=== PATIENT | male | born 1975 | race Caucasian/White ===

== ENCOUNTER 2016-03-09 09:19 | Inpatient (IN) | payer OTHER ==
[2016-02-26 10:04] VITALS: BMI 28.0
[~2016-03-09] VITALS: Ht 175.3 cm; Wt 88.2 kg
[2016-03-09] VITALS (9 sets, daily range): BP systolic 99–146; BP diastolic 62–79; PULSE 56–76; TEMP 36.7–37; O2SAT 95–99; Ht 175.3 cm; Wt 88.2 kg
--- NOTE | 2016-03-09 09:08 | History & Physical Bridge Note ---
H&P Re-Evaluation Bridge Note: I have examined the patient, reviewed the History & Physical and in the interval since the performance of the History & Physical I have noted the following changes of clinical significance: No changes noted
[~2016-03-09 09:19] MED LIST: ATROPINE SULFATE 0.1 MG/ML 5ML SYR IV PRN; CEFUROXIME IV 1,500 MG in DEXTROSE 5% 100ML IV SCH; EpHEDrine SULFATE INJ 50 MG/ML AMP IV PRN; FENTANYL CITRATE INJ 50 MCG/1 ML 2 ML VIAL IV PRN; LABETALOL HCL IV 5 MG/ML 20ML IV PRN; LACTATED RINGER'S 1000ML 1,000 ML IV SCH; MEPERIDINE HCL 25 MG/ML CARP IV PRN; ONDANSETRON INJ 2 MG/ML 2 ML VIAL IV PRN; ZNTT/150 PO
--- NOTE | 2016-03-09 10:57 | Surgery Progress Note ---
Surgery Progress Note Date of Service Mar 09, 2016. Subjective pt alert, stable Objective Vital Signs: Date Time Temp Pulse Resp B/P Pulse Ox O2 Delivery O2 Flow Rate FiO2 03/09/16 09:46 36.8 64 20 126/77 97 Room Air General Appearance: no apparent distress Respiratory/Chest: no respiratory distress Abdomen: non distended, soft Assessment & Plan 03/09/16- pt for laparoscopic cholecystectomy, possible open operation- I discussed with him in the office the possibility this operation will not alleviate all of his symptoms. He seemed to understand this and wishes to proceed.
[2016-03-09] MEDS ORDERED: MIDAZOLAM HCL 1 MG/ML 2ML VIAL ONE (11:51)
[2016-03-09] MEDS ORDERED: FENTANYL CITRATE INJ 50 MCG/1 ML 2 ML VIAL ONE ×3 (11:52→14:49)
[2016-03-09] MEDS ORDERED: LIDOCAINE HCL 2% 2 ML VIAL (20MG/ML) ONE (11:52)
[2016-03-09] MEDS ORDERED: ONDANSETRON INJ 2 MG/ML 2 ML VIAL ONE (11:53)
[2016-03-09] MEDS ORDERED: GLYCOPYRROLATE INJ 0.2 MG/ML VIAL ONE (11:53)
[2016-03-09] MEDS ORDERED: ROCURONIUM BROMIDE 10 MG/ML 5 ML VIAL ONE ×2 (11:53→13:07)
[2016-03-09] MEDS ORDERED: NEOSTIGMINE METHYLSULFATE 5 MG/5 ML SYR ONE (11:53)
[2016-03-09] MEDS ORDERED: PROPOFOL IV EMULSION 10 MG/ML 20 ML VIAL IV ONE (11:53)
[2016-03-09] MEDS ORDERED: BUPIVACAINE 0.5 % 5 MG/1 ML MPF 30ML VIAL INJ ONE (14:15)
--- NOTE | 2016-03-09 14:24 | [facility] Operative Report ---
Operative Report Operative Date Mar 09, 2016. Pre-Operative Diagnosis Severe chronic cholecystitis Post-Operative Diagnosis same with severe adhesions Procedure(s) Performed lap cammie with extensive lysis of adhesions Surgeon Dr. Bharat Fields Ware Finisher Surgeon(s) none Estimated Blood Loss 30ml Findings diffuse small bowel and omental adhesions and 2 stones in neck of gb- severe chronic cholecystitis Specimens A. Gallbladder Drains #15 Rd LANCE to subhep space Anesthesia gen Complication(s) None Disposition Recovery Room / PACU I attest to the content of the Intraoperative Record and any orders documented therein. Any exceptions are noted below.
[2016-03-09] MEDS ORDERED: HYDROmorphone INJ 0.5 MG/0.5 ML SYR IV PRN (14:30)
[2016-03-09] MEDS ORDERED: ONDANSETRON INJ 2 MG/ML 2 ML VIAL IV PRN (14:30)
[2016-03-09] MEDS ORDERED: PROMETHAZINE HCL INJ 25 MG in SODIUM CHLORIDE 0.9% 50ML 50 ML IV PRN (14:30)
[2016-03-09] MEDS ORDERED: OXYCODONE/ACETAMINOPHEN 5-325 TAB PO PRN (14:30)
[2016-03-09] MEDS ORDERED: HYDROmorphone INJ 1 MG/ML SYR IV PRN (14:30)
[2016-03-09 14:59] LABS: HEMATOCRIT 41.3 % (42-52); MEAN CELL VOLUME 89.8 fL (80-100); MEAN CORPUSCULAR HEMOGLOBIN 30.4 pg (25-34); MEAN CORPUSCULAR HGB CONC 33.9 g/dl (32-36); PLATELET COUNT 121 K/uL (130-400)
--- NOTE | 2016-03-09 15:06 | OPERATIVE REPORT ---
DATE OF OPERATION: 03/09/2016 NAME OF OPERATION: Laparoscopic cholecystectomy with extensive lysis of adhesions. PREOPERATIVE DIAGNOSIS: Biliary colic. POSTOPERATIVE DIAGNOSES: Same with severe chronic cholecystitis and severe abdominal adhesions. STAFF SURGEON: Dr. Fields. ANESTHESIA: General. FINDINGS: The patient had extensive intraabdominal adhesions including the omentum and small bowel and severe chronic inflammation of the gallbladder with 2 stones in the neck of the gallbladder. DESCRIPTION OF PROCEDURE: The patient was brought in the operating room and placed on the operating table in supine position. His abdomen was prepped and draped in usual fashion. Orogastric tube and pneumatic stockings were placed. Initially, I made an incision to the right of midline just below the umbilicus secondary to a long midline incision from previous abdominal surgery. I dissected down through the fascia and I felt that I was in the abdomen, placed a cannula, which was a 5 mm cannula and it was evident that when I passed the camera after attempting to produce pneumoperitoneum, I was in the preperitoneal space. At this point, I removed the port and then I approached the right mid abdomen where I did another cut down, entering the abdominal cavity under visualization, placing a 5-mm port, producing pneumoperitoneum. On inspection with a 5 mm camera, the patient had dense adhesions. I was able to place a second port between these 2 and below them and then I was able to take down adhesions of the omentum and small bowel, eventually able to observe the gallbladder which was extremely adherent to the liver with 2 stones in the neck. At this point under visualization, I was able to place a 5-mm port cephalad and then retract the gallbladder, dissecting in the juanita hepatis, identifying the cystic duct and cystic artery. These were clipped and transected and the gallbladder was dissected away from the liver bed in the usual fashion, showing chronic inflammation. Gallbladder was then placed in an Endobag, prior to removing the bag I did place a 15 round LANCE drain through one of these 5-mm port, secured to the skin using 3-0 nylon suture, placed into the subhepatic space. This was after appropriate irrigation. At this point, using a 5 mm camera, I was able to remove the bag with the gallbladder through the periumbilical site. All ports were then removed. The large defects closed using interrupted 0 Vicryl suture and 0 PDS sutures and then the subcutaneous tissue reapproximated using 2-0 plain catgut suture, then the skin reapproximated using 4-0 nylon suture. The LANCE drain was placed to suction bulb. The operation itself took me almost 45 minutes extra because of the adhesions and difficulty entering the abdomen in a safe manner. I attest to the content of the Intraoperative Record and any orders documented therein. Any exceptions are noted below. RESHMAD
--- NOTE | 2016-03-09 15:10 | Anesthesiology Progress Note ---
Anesthesia Post Op Note Date & Time Mar 09, 2016 at 15:10 Vital Signs Pain Intensity: 2 Vital Signs Past 12 Hours Date Time Temp Pulse Resp B/P Pulse Ox O2 Delivery O2 Flow Rate FiO2 03/09/16 14:49 136/71 03/09/16 14:48 61 15 100 03/09/16 14:48 62 15 03/09/16 14:43 62 16 03/09/16 14:43 63 16 136/84 100 03/09/16 14:38 59 15 03/09/16 14:38 58 15 146/88 100 03/09/16 14:33 62 20 03/09/16 14:33 61 20 138/88 100 03/09/16 14:28 77 20 137/82 100 03/09/16 14:28 36.4 74 16 142/91 100 Mask 10 03/09/16 14:28 77 20 03/09/16 09:46 36.8 64 20 126/77 97 Room Air Notes Mental Status: alert / awake / arousable, participated in evaluation Pt Amnestic to Procedure: Yes Nausea / Vomiting: adequately controlled Pain: adequately controlled Airway Patency, RR, SpO2: stable & adequate BP & HR: stable & adequate Hydration State: stable & adequate Anesthetic Complications: no major complications apparent
[2016-03-09] MEDS: HYDROmorphone INJ 1 MG/ML SYR IV PRN ×4 (15:16→15:31)
[2016-03-09] MEDS: LACTATED RINGER'S 1000ML 1,000 ML IV SCH (16:56)
[2016-03-09] MEDS: OXYCODONE/ACETAMINOPHEN 5-325 TAB PO PRN ×2 (17:30→21:33)
[2016-03-09] MEDS: HYDROmorphone INJ 2 MG/ML SYR/VIAL IV PRN ×2 (18:41→22:37)
[2016-03-09] MEDS: CEFOXITIN IV 1,000 MG in DEXTROSE 5% 50ML 50 ML IV SCH (20:31)
[2016-03-09] MEDS: RANITIDINE HCL 150 MG TAB PO SCH (21:30)
[2016-03-10 00:10] VITALS: O2SAT 98
[2016-03-10] MEDS: OXYCODONE/ACETAMINOPHEN 5-325 TAB PO PRN ×3 (01:38→09:43)
[2016-03-10] MEDS: HYDROmorphone INJ 2 MG/ML SYR/VIAL IV PRN (02:27)
[2016-03-10 03:51] VITALS: BP 110/65; PULSE 62; TEMP 37.1; O2SAT 94
[2016-03-10] MEDS: CEFOXITIN IV 1,000 MG in DEXTROSE 5% 50ML 50 ML IV SCH ×3 (04:14→20:51)
[2016-03-10] MEDS: LACTATED RINGER'S 1000ML 1,000 ML IV SCH (04:15)
[2016-03-10 05:42] LABS: HEMATOCRIT 39.7 % (42-52); MEAN CELL VOLUME 90.8 fL (80-100); MEAN CORPUSCULAR HEMOGLOBIN 30.2 pg (25-34); MEAN CORPUSCULAR HGB CONC 33.2 g/dl (32-36); MEAN PLATELET VOLUME 11.2 fL (7.4-10.4); PLATELET COUNT 135 K/uL (130-400); RED BLOOD COUNT 4.37 M/uL (4.7-6.1); WHITE BLOOD COUNT 6.38 K/uL (4.8-10.8)
[2016-03-10 06:10] LABS: BUN/CREATININE RATIO 9.5 (10-20); CALCIUM 8.4 mg/dl (8.5-10.1); CREATININE 1.1 mg/dl (0.60-1.40); POTASSIUM 3.8 mmol/L (3.5-5.1)
[2016-03-10 06:12] LABS: ALB/GLOB RATIO 0.9 (0.9-2)
--- NOTE | 2016-03-10 06:19 | Surgery Progress Note ---
Surgery Progress Note Date of Service Mar 10, 2016. Subjective No nausea, No vomiting tolerating liquids, taking IV and po pain meds dr- expected serosang outpt, H/H stable Objective Vital Signs: Date Time Temp Pulse Resp B/P Pulse Ox O2 Delivery O2 Flow Rate FiO2 03/10/16 03:51 37.1 62 18 110/65 94 Room Air 03/10/16 00:10 98 Room Air 03/09/16 23:30 37.0 63 16 119/66 95 Room Air 03/09/16 19:00 36.7 76 18 110/69 97 Nasal Cannula 03/09/16 18:00 37.0 64 18 139/79 97 Nasal Cannula 2.0 03/09/16 17:06 37.0 58 17 121/78 98 Nasal Cannula 2.0 03/09/16 17:00 98 Nasal Cannula 2.0 03/09/16 16:29 36.9 64 17 118/74 99 Nasal Cannula 2.0 03/09/16 16:03 36.9 64 16 146/67 99 Nasal Cannula 2.0 03/09/16 16:00 99 Nasal Cannula 2.0 03/09/16 15:48 133/82 03/09/16 15:45 61 15 03/09/16 15:45 61 15 100 03/09/16 15:43 114/72 03/09/16 15:40 64 26 03/09/16 15:40 66 26 100 03/09/16 15:38 126/78 03/09/16 15:35 61 14 100 03/09/16 15:35 60 14 03/09/16 15:33 123/85 03/09/16 15:30 69 19 100 03/09/16 15:30 66 19 03/09/16 15:28 124/83 03/09/16 15:25 59 14 03/09/16 15:25 59 14 100 03/09/16 15:23 121/80 03/09/16 15:22 126/76 03/09/16 15:20 60 14 100 03/09/16 15:20 60 14 03/09/16 15:18 123/77 03/09/16 15:17 36.7 60 17 123/77 100 Nasal Cannula 2 03/09/16 15:15 63 17 100 03/09/16 15:15 62 17 03/09/16 15:14 59 18 03/09/16 15:14 59 18 100 03/09/16 15:13 123/80 03/09/16 15:09 72 15 100 03/09/16 15:09 75 15 03/09/16 15:08 120/78 03/09/16 15:05 63 13 03/09/16 15:05 63 13 100 03/09/16 15:03 131/79 03/09/16 15:00 64 17 03/09/16 15:00 63 17 100 03/09/16 14:58 124/83 03/09/16 14:55 68 21 03/09/16 14:55 68 21 100 03/09/16 14:53 137/85 03/09/16 14:50 57 14 03/09/16 14:50 57 14 100 03/09/16 14:49 136/71 03/09/16 14:48 61 15 100 03/09/16 14:48 62 15 03/09/16 14:43 62 16 03/09/16 14:43 63 16 136/84 100 03/09/16 14:38 59 15 03/09/16 14:38 58 15 146/88 100 03/09/16 14:33 62 20 03/09/16 14:33 61 20 138/88 100 03/09/16 14:28 77 20 137/82 100 03/09/16 14:28 36.4 74 16 142/91 100 Mask 10 03/09/16 14:28 77 20 03/09/16 09:46 36.8 64 20 126/77 97 Room Air General Appearance: no apparent distress Respiratory/Chest: no respiratory distress Abdomen: soft Incision(s): intact, drainage (expected) Laboratory Results: Results Past 24 Hours Test 03/09/16 14:48 03/10/16 05:00 Range/Units White Blood Count 6.60 6.38 4.8-10.8 K/uL Red Blood Count 4.60 4.37 4.7-6.1 M/uL Hemoglobin 14.0 13.2 14.0-18.0 g/dL Hematocrit 41.3 39.7 42-52 % Mean Corpuscular Volume 89.8 90.8 80-100 fL Mean Corpuscular Hemoglobin 30.4 30.2 25-34 pg Mean Corpuscular Hemoglobin Concent 33.9 33.2 32-36 g/dl RDW Standard Deviation 41.6 42.0 36.4-46.3 fL RDW Coefficient of Variation 12.8 12.7 11.5-14.5 % Platelet Count 121 135 130-400 K/uL Mean Platelet Volume 11.0 11.2 7.4-10.4 fL Sodium Level 140 136-145 mmol/L Potassium Level 3.8 3.5-5.1 mmol/L Chloride Level 104 98-107 mmol/L Carbon Dioxide Level 27 21-32 mmol/L Anion Gap 9.0 3-11 mmol/L Blood Urea Nitrogen 10 7-18 mg/dl Creatinine 1.10 0.60-1.40 mg/dl Est Creatinine Clear Calc Drug Dose 99.1 ml/min Estimated GFR () 97.5 Estimated GFR (Non- 84.1 BUN/Creatinine Ratio 9.5 10-20 Random Glucose 103 70-99 mg/dl Calcium Level 8.4 8.5-10.1 mg/dl Total Bilirubin 0.6 0.2-1 mg/dl Direct Bilirubin 0.1 0-0.2 mg/dl Aspartate Amino Transf (AST/SGOT) 28 15-37 U/L Alanine Aminotransferase (ALT/SGPT) 38 12-78 U/L Alkaline Phosphatase 55 45-117 U/L Total Protein 6.6 6.4-8.2 gm/dl Albumin 3.2 3.4-5.0 gm/dl Globulin 3.4 2.5-4.0 gm/dl Albumin/Globulin Ratio 0.9 0.9-2 Microbiology Results 03/09/16 MRSA DNA Surveillance Screen - Final, Complete Specimen Positive for MRSA by DNA Probe Assessment & Plan 03/10/16- s/p lap cammie with extensive lysis of adhesions- adv diet , ambulate, d /c dilaudid cont percocet, check labs- 03/09/16- pt for laparoscopic cholecystectomy, possible open operation- I discussed with him in the office the possibility this operation will not alleviate all of his symptoms. He seemed to understand this and wishes to proceed. 03/09/16- pt for laparoscopic cholecystectomy, possible open operation- I discussed with him in the office the possibility this operation will not alleviate all of his symptoms. He seemed to understand this and wishes to proceed.
[2016-03-10] MEDS ORDERED: OXYC-57 PO (06:22)
[2016-03-10] MEDS ORDERED: CIPR-255 PO (06:22)
--- NOTE | 2016-03-10 06:26 | Discharge Instructions ---
Discharge Instructions Admission Reason for Admission: Chronic Cholecystitis Discharge Discharge Diagnosis / Problem: chronic cholecystitis and adhesions Discharge Goals Goal(s): Decrease discomfort, Improve function, Improve disease control Activity Recommendations Activity Limitations: as noted below Lifting Limitations: no more than 10 pounds Exercise/Sports Limitations: until after follow-up appointment May Resume Sexual Activity: after follow-up appointment Shower/Bathe: tomorrow (may shower) Driving or Machine Use: resume 3 days after discharge SPECIAL CARE INSTRUCTIONS: * Cover incisions and change daily for comfort/drainage. * Empty drain 2-3 times per day and record. * May use ibuprofen for pain as tolerated. * Expect some swelling and bruising. Call your doctor if: * Temperature above 101 degrees * Pain not relieved by pain medicine ordered * There is increased drainage or redness from any incision * You have any unanswered questions or concerns [phone]. FOLLOW UP VISIT: If not already scheduled, please call the office for a follow-up visit. for Wed 2/3 or next Mon or Tue for drain removal- call with questions OFFICE PHONE NUMBER: Dr. Fields Office . Current Hospital Diet Patient's current hospital diet: Regular Diet Discharge Diet Recommended Diet: Regular Diet Procedures Procedures Performed: Laparoscopic Cholecystectomy Pending Studies Studies pending at discharge: no Medical Emergencies . Who to Call and When: Medical Emergencies: If at any time you feel your situation is an emergency, please call 911 immediately. . Non-Emergent Contact Non-Emergency issues call your: Surgeon . "Provider Documentation" section prepared by Bharat Fields. VTE Core Measure Inpt VTE Proph given/why not?: SCD's
--- NOTE | 2016-03-10 08:12 | Anesthesiology Progress Note ---
Anesthesia Post Op Note Date & Time Mar 10, 2016 at 08:12 Vital Signs Vital Signs Past 12 Hours Date Time Temp Pulse Resp B/P Pulse Ox O2 Delivery O2 Flow Rate FiO2 03/10/16 03:51 37.1 62 18 110/65 94 Room Air 03/10/16 00:10 98 Room Air 03/09/16 23:30 37.0 63 16 119/66 95 Room Air Notes Mental Status: alert / awake / arousable, participated in evaluation Pt Amnestic to Procedure: Yes Nausea / Vomiting: adequately controlled Pain: adequately controlled Airway Patency, RR, SpO2: stable & adequate BP & HR: stable & adequate Hydration State: stable & adequate Anesthetic Complications: no major complications apparent
[2016-03-10] MEDS ORDERED: NURSING VERBAL MED ORDER ONE (08:15)
[2016-03-10] MEDS: HYDROmorphone INJ 1 MG/ML SYR IV PRN ×5 (08:23→20:52)
[2016-03-10] MEDS: DOCUSATE SODIUM/SENNA 50/8.6MG TAB PO SCH ×2 (08:59→20:51)
[2016-03-10] MEDS: MAGNESIUM HYDROXIDE SUSP 30 ML UDC PO SCH ×2 (08:59→20:51)
[2016-03-10] MEDS: RANITIDINE HCL 150 MG TAB PO SCH ×2 (09:43→20:52)
[2016-03-10] MEDS ORDERED: OXYC10SO PO (13:06)
[2016-03-10] MEDS: OXYCODONE HCL SOLN 5 MG/5 ML UDC PO PRN ×3 (13:38→23:35)
[2016-03-10 15:04] VITALS: BP 126/75; PULSE 79; TEMP 37; O2SAT 92
[2016-03-10 15:30] VITALS: O2SAT 92
[2016-03-10 22:49] VITALS: BP 123/80; PULSE 66; TEMP 37.2; O2SAT 92
[2016-03-11] MEDS ORDERED: COUGH DROP (SUGAR FREE) LOZ 24 LOZ/1 BOX ONE (01:10)
[2016-03-11] MEDS: HYDROmorphone INJ 1 MG/ML SYR IV PRN ×4 (01:15→11:39)
[2016-03-11] MEDS: CEFOXITIN IV 1,000 MG in DEXTROSE 5% 50ML 50 ML IV SCH ×2 (03:33→11:50)
[2016-03-11] MEDS: OXYCODONE HCL SOLN 5 MG/5 ML UDC PO PRN ×3 (04:23→13:25)
[2016-03-11 07:50] VITALS: BP 134/81; PULSE 75; TEMP 37.1; O2SAT 94
[2016-03-11] MEDS ORDERED: SENN8.6T7 PO (07:56)
--- NOTE | 2016-03-11 08:12 | Surgery Progress Note ---
Surgery Progress Note Date of Service Mar 11, 2016. Subjective Post OP Day: 2 tolerating diet, po oxycodone marginal control-still taking IV pain meds Objective Vital Signs: Date Time Temp Pulse Resp B/P Pulse Ox O2 Delivery O2 Flow Rate FiO2 03/11/16 07:50 37.1 75 18 134/81 94 Room Air 03/10/16 23:25 Room Air 03/10/16 22:49 37.2 66 16 123/80 92 Room Air 03/10/16 15:30 92 Room Air 03/10/16 15:04 37.0 79 18 126/75 92 Room Air Physical Exam: LANCE drainage (15 cc) Abdomen: non distended, soft Incision(s): clean, dry Assessment & Plan s/p lap cammie osborne for d/c today with drain, po analgesics, cipro and senna
[2016-03-11] MEDS: MAGNESIUM HYDROXIDE SUSP 30 ML UDC PO SCH (08:29)
[2016-03-11] MEDS: DOCUSATE SODIUM/SENNA 50/8.6MG TAB PO SCH (08:29)
[2016-03-11] MEDS: RANITIDINE HCL 150 MG TAB PO SCH (08:40)
--- NOTE | 2016-03-11 08:44 | DISCHARGE SUMMARY ---
PRIMARY DISCHARGE DIAGNOSES: Cholelithiasis with severe chronic cholecystitis and intra-abdominal adhesions. PROCEDURE PERFORMED: Laparoscopic cholecystectomy with extensive lysis of adhesions. HOSPITAL COURSE: The patient is a 41-year-old male inmate with chronic cholecystitis, previous abdominal surgery and extensive adhesions. There were 2 stones in the neck of the gallbladder. A LANCE drain was placed. He was transferred to the surgical floor for observation. On postoperative day 1, he was tolerating an advancing diet. He continued to require IV analgesics in addition to p.o. His LANCE drainage was nonbilious. His p.o. meds were adjusted. By day 2, he was better tolerating oral analgesics, oxycodone 10 mg, but was taking intermittent IV Dilaudid as well. He was tolerating diet. He was stable for transfer back to [facility] with oral analgesics. DISCHARGE INSTRUCTIONS: Return to [facility] with the LANCE drain. Drain should be emptied and recorded 2-3 times daily. The drain can be removed in 2-3 days by [facility] staff or he can follow up in the office later this week or early next week for removal. He may shower with the drain. He should follow up with Dr. Fields in the office within 1-2 weeks. Sutures can be removed at that time. DISCHARGE MEDICATIONS: He was given prescriptions for Cipro 500 mg p.o. b.i.d. x7, Roxicodone 10 mg p.o. q. 6 hours, and Senokot-S 1 tablet p.o. b.i.d. x1 week. Continue Zantac 150 mg p.o. b.i.d. MTDD
[2016-03-11 09:18] VITALS: BP 134/81; PULSE 75; TEMP 37.1; O2SAT 94
== END 2016-03-11 13:15 | DRG 419 ==
LOC: ENRESERVTM → ENRESERVDT → C.ACU 09:19 → C.MSW 09:35
PROVIDERS: ADMIT Surgery; ATTEND Surgery
PROC: 0FN44ZZ Release Gallbladder, Percutaneous Endoscopic Approach (ICD-10-PCS; principal; 2016-03-09 07:00)
PROC: 0FT44ZZ Resection of Gallbladder, Percutaneous Endoscopic Approach (ICD-10-PCS; principal; 2016-03-09 07:00)
PROC: 0DNS4ZZ (ICD-10-PCS; principal; 2016-03-09 07:00)
PROC: 0DN88ZZ Release Small Intestine, Via Natural or Artificial Opening Endoscopic (ICD-10-PCS; principal; 2016-03-09 07:00)
DX: K80.10 Calculus of gallbladder with chronic cholecystitis without obstruction (principal); K66.0 Peritoneal adhesions (postprocedural) (postinfection); F17.200 Nicotine dependence, unspecified, uncomplicated; Z79.899 Other long term (current) drug therapy; Z98.890 Other specified postprocedural states

== ENCOUNTER 2016-03-21 15:06 | Emergency (ER) | payer OTHER ==
[~2016-03-21] VITALS: Ht 175.3 cm; Wt 88.7 kg
[~2016-03-21 15:06] MED LIST changes: -ATROPINE SULFATE 0.1 MG/ML 5ML SYR IV PRN; -CEFUROXIME IV 1,500 MG in DEXTROSE 5% 100ML IV SCH; +CIPR-255 PO; -EpHEDrine SULFATE INJ 50 MG/ML AMP IV PRN; -FENTANYL CITRATE INJ 50 MCG/1 ML 2 ML VIAL IV PRN; -LABETALOL HCL IV 5 MG/ML 20ML IV PRN; -LACTATED RINGER'S 1000ML 1,000 ML IV SCH; -MEPERIDINE HCL 25 MG/ML CARP IV PRN; -ONDANSETRON INJ 2 MG/ML 2 ML VIAL IV PRN; +OXYC10SO PO; +SENN8.6T7 PO
[2016-03-21 15:18] VITALS: TEMP 37.1; Ht 175.3 cm; Wt 88.7 kg
[2016-03-21 16:02] LABS: BASO % 1.2 %; BASO ABS # 0.08 K/uL (0-0.2); COMPLETE YES; EOS % 9.7 %; HEMATOCRIT 44.8 % (42-52); IG% 0.5 %; LYMPH % 23.5 %; LYMPH ABS # 1.52 K/uL (1.2-3.4); MEAN CELL VOLUME 90.9 fL (80-100); MEAN CORPUSCULAR HEMOGLOBIN 31.8 pg (25-34); MEAN PLATELET VOLUME 10.9 fL (7.4-10.4); MONO % 9.7 %; NEUT % 55.4 %; PLATELET COUNT 220 K/uL (130-400); RED BLOOD COUNT 4.93 M/uL (4.7-6.1); WHITE BLOOD COUNT 6.48 K/uL (4.8-10.8)
[2016-03-21] MEDS ORDERED: DOCU-94 PO (16:15)
[2016-03-21] MEDS ORDERED: ACET-749 PO (16:15)
[2016-03-21] MEDS ORDERED: ONDA4TAB46 PO (16:15)
[2016-03-21 16:27] LABS: ALKALINE PHOSPHATASE 133 U/L (45-117); ALT/SGPT 71 U/L (12-78); BLOOD UREA NITROGEN 13 mg/dl (7-18); BUN/CREATININE RATIO 15.4 (10-20); CALCIUM 9.5 mg/dl (8.5-10.1); CARBON DIOXIDE 27 mmol/L (21-32); CHLORIDE 105 mmol/L (98-107); CREATININE 0.81 mg/dl (0.60-1.40); GLUCOSE 92 mg/dl (70-99)
--- NOTE | 2016-03-21 16:27 | EMERGENCY ROOM VISIT NOTE ---
History Report prepared by Mady: Vilma Fernández Under the Supervision of: Dr. Chente Prieto M.D. First contact with patient: 15:39 Chief Complaint: ABDOMINAL PAIN Stated Complaint: ABDOMINAL PAIN Nursing Triage Summary: Inmate from [facility]. Patient c/o of RUQ abdominal pain x 3 days ago. S/P lap cammie 03/09/2016. History of Present Illness The patient is a 41 year old male who presents to the Emergency Room with complaints of worsening RUQ abdominal pain for the past 3 days. The patient had 2 stones in the neck of his gallbladder and Dr. Fields removed the gallbladder and placed a LANCE drain on 03/10/16. The drain is no longer in place. The patient is complaining of sharp, cramping pain in the RUQ where the drain was. He states that his pain is worse with palpation. He rates his pain as a 10/10 in severity. Source of History: patient Onset: 3 days ago Position: abdomen (RUQ) Symptom Intensity: 10/10 Quality: sharp, cramping Timing: worsening Modifying Factors (Worsening): other (palpation) Review of Systems See HPI for pertinent positives & negatives. A total of 10 systems reviewed and were otherwise negative. Past Medical & Surgical Medical Problems: (1) Chronic cholecystitis (2) Nicotine dependence, unspecified, uncomplicated Family History No pertinent history stated. Social History Smoking Status: Current Every Day Smoker Alcohol Use: none Housing Status: other Occupation Status: other (incarcerated) Current/Historical Medications Scheduled Docusate Sodium (Colace), 1 CAP PO BID Ranitidine (Zantac), 150 MG PO BID Scheduled PRN Acetaminophen/Codeine (Tylenol W/Codeine #3), 2 TAB PO TID PRN for Pain Ondansetron Hcl (Zofran), 4 MG PO TID PRN for Nausea Allergies Coded Allergies: No Known Allergies (Unverified , 03/09/16) Physical Exam Vital Signs Date Time Temp Pulse Resp B/P Pulse Ox O2 Delivery O2 Flow Rate FiO2 03/21/16 19:22 63 18 116/76 98 Room Air 03/21/16 15:18 37.1 72 18 126/89 97 Room Air Physical Exam GENERAL: Patient is a healthy-appearing well-nourished 41 year old male HEAD: Normocephalic atraumatic EYES: Ocular movements intact pupils equal and react to light OROPHARYNX mucous membranes are moist no exudates present no erythema or edema present NECK: Supple no nuchal rigidity CHEST: Good equal expansion LUNGS: Clear and equal to auscultation CARDIAC: Normal S1 and S2 ABDOMEN: Soft slight tenderness in the RUQ, no guarding BACK: No CVA tenderness EXTREMITIES: No pain upon palpation normal muscle strength in all groups no clubbing cyanosis or edema NEURO: Patient is following commands is answering questions appropriately. Alert and oriented x3 Cranial Nerves 2-12 grossly intact Medical Decision & Procedures ER Provider Diagnostic Interpretation: Radiology results as stated below per my review and radiologist interpretation: CT SCAN OF THE ABDOMEN AND PELVIS WITH IV CONTRAST CLINICAL HISTORY: Right upper quadrant abdominal pain. Recent cholecystectomy. COMPARISON STUDY: Abdominal ultrasound dated 03/21/16. TECHNIQUE: Following the IV administration of 117 cc of Optiray 320, CT scan of the abdomen and pelvis is performed from the lung bases to the proximal femora. Images are reviewed in the axial, sagittal, and coronal planes. IV contrast was administered without complication. Automated dose control exposure was utilized. CT DOSE: 381.54 mGy.cm FINDINGS: Lung bases: The heart is normal in size and without pericardial effusion. The lung bases are clear noting dependent atelectasis. Liver: The contrast-enhanced liver is normal in size, contour, and attenuation. There is no intrahepatic biliary ductal dilatation. The hepatic veins and portal veins are patent. Gallbladder: Gallbladder surgically absent noting clips in the gallbladder fossa. There is complex fluid identified in the gallbladder fossa. This measures approximately 5.5 x 2.5 cm in axial diameter. Spleen: Normal in size and attenuation. Pancreas: Unremarkable. Adrenal glands: Unremarkable. Kidneys: The contrast enhanced kidneys are normal in size and without hydronephrosis. The kidneys enhance symmetrically. Abdominal vasculature: The abdominal aorta is normal in course and caliber. Bowel: The small bowel and colon are normal in course and caliber. The appendix is well-visualized and normal. Peritoneum: There is no intraperitoneal free air or abdominal ascites. There is a small fat-containing umbilical hernia. Complex fluid is noted in the gallbladder fossa and discussed above. A laparoscopy port is suspected in the right mid abdomen. Lymphadenopathy: None. Pelvic viscera: The bladder, prostate, and seminal vesicles are normal as visualized. Skeletal structures: No lytic or blastic lesions are seen. IMPRESSION: 1. The gallbladder is surgically absent. There is a small complex fluid collection identified in the gallbladder fossa, which is nonspecific given the history of recent cholecystectomy. This could represent expected postoperative change such as a resolving hematoma/seroma. Abscess or biloma would be impossible to exclude. Clinical correlation will be essential. 2. Additional findings as above. Electronically signed by: Dimitris Giordano M.D. 03/21/2016 7:02 PM Dictated Date/Time: 03/21/2016 6:55 PM ULTRASOUND RIGHT UPPER QUADRANT ABDOMEN CLINICAL HISTORY: Right upper quadrant abdominal pain. COMPARISON STUDY: Abdominal ultrasound dated 11/26/2015. TECHNIQUE: Real-time, grayscale, and color flow sonography of the right upper quadrant of the abdomen was performed. Images are reviewed in the transverse and longitudinal planes. FINDINGS: Liver: The liver is enlarged and demonstrates heterogeneously increased echotexture consistent with hepatic steatosis. There is no intrahepatic biliary ductal dilatation. The main portal vein is patent. Gallbladder: The gallbladder is surgically absent. The common bile duct measures up to 0.5 cm in diameter. Pancreas: Visualized portions of the pancreatic head and body are normal in appearance. The splenic vein is patent. Right kidney: Survey images of the right kidney demonstrate normal size and echotexture. There is no hydronephrosis. Ascites: There is trace perihepatic free fluid. Minimally complex fluid is identified in the gallbladder fossa. This measures up to 2.6 cm. IMPRESSION: 1. There are changes from interval cholecystectomy as compared to 11/26/2015. 2. There is a minimally complex fluid collection identified in the gallbladder fossa measuring up to 2.6 cm. This may simply represent expected postoperative change/resolving seroma/hematoma. Abscess with be impossible to exclude by imaging. Clinical correlation will be required. 3. Hepatomegaly and hepatic steatosis. 4. There is trace perihepatic fluid. Electronically signed by: Dimitris Giordano M.D. 03/21/2016 5:07 PM Dictated Date/Time: 03/21/2016 5:05 PM Laboratory Results 03/21/16 15:50 Red Blood Count 4.93, Mean Corpuscular Volume 90.9, Mean Corpuscular Hemoglobin 31.8, Mean Corpuscular Hemoglobin Concent 35.0, Mean Platelet Volume 10.9, Neutrophils (%) (Auto) 55.4, Lymphocytes (%) (Auto) 23.5, Monocytes (%) (Auto) 9.7, Eosinophils (%) (Auto) 9.7, Basophils (%) (Auto) 1.2, Neutrophils # (Auto) 3.59, Lymphocytes # (Auto) 1.52, Monocytes # (Auto) 0.63, Eosinophils # (Auto) 0.63, Basophils # (Auto) 0.08 03/21/16 15:50 Test 03/21/16 15:50 03/21/16 17:35 White Blood Count 6.48 K/uL (4.8-10.8) Red Blood Count 4.93 M/uL (4.7-6.1) Hemoglobin 15.7 g/dL (14.0-18.0) Hematocrit 44.8 % (42-52) Mean Corpuscular Volume 90.9 fL (80-100) Mean Corpuscular Hemoglobin 31.8 pg (25-34) Mean Corpuscular Hemoglobin Concent 35.0 g/dl (32-36) Platelet Count 220 K/uL (130-400) Mean Platelet Volume 10.9 fL (7.4-10.4) Neutrophils (%) (Auto) 55.4 % Lymphocytes (%) (Auto) 23.5 % Monocytes (%) (Auto) 9.7 % Eosinophils (%) (Auto) 9.7 % Basophils (%) (Auto) 1.2 % Neutrophils # (Auto) 3.59 K/uL (1.4-6.5) Lymphocytes # (Auto) 1.52 K/uL (1.2-3.4) Monocytes # (Auto) 0.63 K/uL (0.11-0.59) Eosinophils # (Auto) 0.63 K/uL (0-0.5) Basophils # (Auto) 0.08 K/uL (0-0.2) RDW Standard Deviation 42.3 fL (36.4-46.3) RDW Coefficient of Variation 12.7 % (11.5-14.5) Immature Granulocyte % (Auto) 0.5 % Immature Granulocyte # (Auto) 0.03 K/uL (0.00-0.02) Anion Gap 10.0 mmol/L (3-11) Est Creatinine Clear Calc Drug Dose 134.9 ml/min Estimated GFR () 129.8 Estimated GFR (Non- 112.0 BUN/Creatinine Ratio 15.4 (10-20) Calcium Level 9.5 mg/dl (8.5-10.1) Total Bilirubin 0.4 mg/dl (0.2-1) Direct Bilirubin < 0.1 mg/dl (0-0.2) Aspartate Amino Transf (AST/SGOT) 33 U/L (15-37) Alanine Aminotransferase (ALT/SGPT) 71 U/L (12-78) Alkaline Phosphatase 133 U/L (45-117) Total Protein 8.2 gm/dl (6.4-8.2) Albumin 3.7 gm/dl (3.4-5.0) Lipase 151 U/L (73-393) Urine Color YELLOW Urine Appearance CLEAR (CLEAR) Urine pH 6.5 (4.5-7.5) Urine Specific [place] <= 1.005 (1.000-1.030) Urine Protein NEG (NEG) Urine Glucose (UA) NEG (NEG) Urine Ketones NEG (NEG) Urine Occult Blood NEG (NEG) Urine Nitrite NEG (NEG) Urine Bilirubin NEG (NEG) Urine Urobilinogen NEG (NEG) Urine Leukocyte Esterase NEG (NEG) Labs reviewed by ED physician. Medications Administered Medications (Trade) Dose Ordered Sig/Nola Route Start Time Stop Time Status Last Admin Dose Admin Ketorolac Tromethamine (Toradol Inj) 30 mg NOW STAT IV 03/21/16 17:20 03/21/16 17:23 DC 03/21/16 17:28 30 MG Metoclopramide HCl (Reglan Inj) 10 mg NOW STAT IV 03/21/16 17:20 03/21/16 17:23 DC 03/21/16 17:27 10 MG Hydromorphone HCl (Dilaudid Inj) 1 mg NOW STAT IV 03/21/16 19:12 03/21/16 19:13 DC 03/21/16 19:19 1 MG ED Course 1539: Past medical records reviewed. The patient was evaluated in room A2. A complete history and physical examination was performed. 1720: Reglan 10 mg IV, Toradol 30 mg IV 1908: At this time I spoke with Dr. Orlando of surgery. We discussed the patient's case and he will follow-up with the patient in the office on Wednesday. 0: I reassessed the patient at this time. He is still complaining of pain. I discussed the results and treatment plan with the patient. I answered all pertaining questions that he had. He expressed understanding and verbalized agreement. The patient will be discharged. 1911: Dilaudid 1 mg IV Medical Decision Differential diagnosis: Etiologies such as appendicitis, diverticulitis, PUD, biliary pathology, UTI, pancreatitis, obstruction, mesenteric ischemia, aortic pathology, infections, inflammatory bowel disease, renal colic, as well as others were entertained. This is a 41-year-old male who presents emergency department complaining of right lower quadrant abdominal pain. The patient recently had a cholecystectomy performed. The patient is mainly tender on examination and in addition he has a normal white blood count and is total bili and direct bili are normal. Patient was sent for ultrasound which showed fluid in the gallbladder fossa. For this reason a CAT scan was performed which also confirmed these findings. I did discuss the case with the surgeon on-call who asked that the patient follow-up with surgery on Wednesday. An IV was established , the patient is given normal saline bolus, Toradol, Dilaudid. Both patient and caregivers were in agreement with the treatment plan. Consults Time Called: 1905 Consulting Physician: Dr. Orlando Returned Call: 1907 At this time I spoke with Dr. Orlando of surgery. We discussed the patient's case and he will follow-up with the patient in the office on Wednesday. Impression Primary Impression: Abdominal pain Scribe Attestation The scribe's documentation has been prepared under my direction and personally reviewed by me in its entirety. I confirm that the note above accurately reflects all work, treatment, procedures, and medical decision making performed by me. Departure Information Dispostion Home / Self-Care Referrals [facility] (PCP) Bharat Fields M.D. Forms Call Back Authorization, HOME CARE DOCUMENTATION FORM, IMPORTANT VISIT INFORMATION Patient Instructions ED Abd Pain Unkn Cause Male, My [facility] Additional Instructions Follow up with DR Fields's office on Wednesday You have been examined and treated today on an emergency basis only. This is not a substitute for, or an effort to provide, complete comprehensive medical care. It is impossible to recognize and treat all injuries or illnesses in a single emergency department visit. It is therefore important that you follow up closely with your PCP. Call as soon as possible for an appointment. Thank you for your time and consideration. I look forward to speaking with you again soon. Please don't hesitate to call us if you have any questions. Problem Qualifiers Primary Impression: Abdominal pain Abdominal location: right upper quadrant Qualified Codes: R10.11 - Right upper quadrant pain
[2016-03-21 16:31] LABS: POTASSIUM 4.7 mmol/L (3.5-5.1); SODIUM 142 mmol/L (136-145)
[2016-03-21 16:36] LABS: AST/SGOT 33 U/L (15-37)
--- NOTE | 2016-03-21 17:09 | DIAGNOSTIC IMAGING REPORT ---
ULTRASOUND RIGHT UPPER QUADRANT ABDOMEN CLINICAL HISTORY: Right upper quadrant abdominal pain. COMPARISON STUDY: Abdominal ultrasound dated 11/26/2015. TECHNIQUE: Real-time, grayscale, and color flow sonography of the right upper quadrant of the abdomen was performed. Images are reviewed in the transverse and longitudinal planes. FINDINGS: Liver: The liver is enlarged and demonstrates heterogeneously increased echotexture consistent with hepatic steatosis. There is no intrahepatic biliary ductal dilatation. The main portal vein is patent. Gallbladder: The gallbladder is surgically absent. The common bile duct measures up to 0.5 cm in diameter. Pancreas: Visualized portions of the pancreatic head and body are normal in appearance. The splenic vein is patent. Right kidney: Survey images of the right kidney demonstrate normal size and echotexture. There is no hydronephrosis. Ascites: There is trace perihepatic free fluid. Minimally complex fluid is identified in the gallbladder fossa. This measures up to 2.6 cm. IMPRESSION: 1. There are changes from interval cholecystectomy as compared to 11/26/2015. 2. There is a minimally complex fluid collection identified in the gallbladder fossa measuring up to 2.6 cm. This may simply represent expected postoperative change/resolving seroma/hematoma. Abscess with be impossible to exclude by imaging. Clinical correlation will be required. 3. Hepatomegaly and hepatic steatosis. 4. There is trace perihepatic fluid. Electronically signed by: Dimitris Giordano M.D. 03/21/2016 5:07 PM Dictated Date/Time: 03/21/2016 5:05 PM
[2016-03-21] MEDS ORDERED: KETOROLAC TROMETHAMINE 30 MG/ML VIAL IV STA (17:20)
[2016-03-21] MEDS ORDERED: METOCLOPRAMIDE HCL INJ 5 MG/ML 2 ML VIAL IV STA (17:20)
[2016-03-21] MEDS ORDERED: OPTIRAY 320 IV PRN (17:30)
[2016-03-21 18:01] LABS: MANUAL MICROSCOPIC REQUIRED? NO; REVIEW REQ? NO; URINE APPEARANCE CLEAR (CLEAR); URINE BILIRUBIN NEG (NEG); URINE COLOR YELLOW; URINE NITRITE NEG (NEG); URINE PH 6.5 (4.5-7.5); URINE SPECIFIC GRAVITY <= 1.005 (1.000-1.030); UROBILINOGEN NEG (NEG)
--- NOTE | 2016-03-21 19:03 | DIAGNOSTIC IMAGING REPORT ---
CT SCAN OF THE ABDOMEN AND PELVIS WITH IV CONTRAST CLINICAL HISTORY: Right upper quadrant abdominal pain. Recent cholecystectomy. COMPARISON STUDY: Abdominal ultrasound dated 03/21/16. TECHNIQUE: Following the IV administration of 117 cc of Optiray 320, CT scan of the abdomen and pelvis is performed from the lung bases to the proximal femora. Images are reviewed in the axial, sagittal, and coronal planes. IV contrast was administered without complication. Automated dose control exposure was utilized. CT DOSE: 381.54 mGy.cm FINDINGS: Lung bases: The heart is normal in size and without pericardial effusion. The lung bases are clear noting dependent atelectasis. Liver: The contrast-enhanced liver is normal in size, contour, and attenuation. There is no intrahepatic biliary ductal dilatation. The hepatic veins and portal veins are patent. Gallbladder: Gallbladder surgically absent noting clips in the gallbladder fossa. There is complex fluid identified in the gallbladder fossa. This measures approximately 5.5 x 2.5 cm in axial diameter. Spleen: Normal in size and attenuation. Pancreas: Unremarkable. Adrenal glands: Unremarkable. Kidneys: The contrast enhanced kidneys are normal in size and without hydronephrosis. The kidneys enhance symmetrically. Abdominal vasculature: The abdominal aorta is normal in course and caliber. Bowel: The small bowel and colon are normal in course and caliber. The appendix is well-visualized and normal. Peritoneum: There is no intraperitoneal free air or abdominal ascites. There is a small fat-containing umbilical hernia. Complex fluid is noted in the gallbladder fossa and discussed above. A laparoscopy port is suspected in the right mid abdomen. Lymphadenopathy: None. Pelvic viscera: The bladder, prostate, and seminal vesicles are normal as visualized. Skeletal structures: No lytic or blastic lesions are seen. IMPRESSION: 1. The gallbladder is surgically absent. There is a small complex fluid collection identified in the gallbladder fossa, which is nonspecific given the history of recent cholecystectomy. This could represent expected postoperative change such as a resolving hematoma/seroma. Abscess or biloma would be impossible to exclude. Clinical correlation will be essential. 2. Additional findings as above. Electronically signed by: Dimitris Giordano M.D. 03/21/2016 7:02 PM Dictated Date/Time: 03/21/2016 6:55 PM
[2016-03-21] MEDS ORDERED: HYDROmorphone INJ 1 MG/ML SYR IV STA (19:12)
[2016-03-21 19:22] VITALS: BP 116/76; PULSE 63; O2SAT 98
== END 2016-03-21 19:38 | disposition home or self-care (01) ==
LOC: C.EDB 15:08 → C.EDA 19:38
DX: R10.11 Right upper quadrant pain (principal); F17.210 Nicotine dependence, cigarettes, uncomplicated; Z79.899 Other long term (current) drug therapy